=== PATIENT | female | born 1965 | race African-American/Black ===

== ENCOUNTER 2021-03-09 04:53 | Emergency (ER) | payer SELFPAY ==
[~2021-03-09] VITALS: Ht 149.9 cm; Wt 77.1 kg
--- NOTE | 2021-03-09 05:00 | NUR ---
pt bibself c/o cough, nausea, and back pain x10 days. Pt aaox4 breathing evenly and unlabored. pt states that she went to urgent care last week and was told it was bronchitis. Pt was given zpack and inhaler and states that she is not getting better. Skin is warm and dry. Pt attached to monitor and pox. Pt given blanket and call light within reach
--- NOTE | 2021-03-09 06:30 | NUR ---
xray at bedside
[2021-03-09] MEDS ORDERED: PROM118S5 PO (07:26)
[2021-03-09] MEDS ORDERED: DEXA4TAB PO (07:26)
[2021-03-09] MEDS ORDERED: PROM118S PO (07:44)
[2021-03-09 07:49] VITALS: BP 128/71
--- NOTE | 2021-03-09 07:49 | NUR ---
Patient discharged to home in stable condition. Written and verbal after care instructions given. Patient verbalizes understanding of instruction.
== END 2021-03-09 07:49 | disposition home or self-care (01) ==
LOC: ER 04:58
DX: R05 Cough (principal); Z88.8 Allergy status to other drugs, medicaments and biological substances
CPT/HCPCS: 71045-TC